=== PATIENT | female | born 1995 | race Caucasian/White ===

== ENCOUNTER → 2017-03-29 | Outpatient (CLI) | payer BC, OTHER ==
[2017-03-29 18:43] LABS: BASOPHILS % (AUTO) 1 % (0-10); EOSINOPHILS # (AUTO) 0.1 10^3/uL (0.0-0.3); EOSINOPHILS % (AUTO) 1 % (0-10); LYMPHOCYTES # (AUTO) 2.6 X 10^3 (1.0-4.0); LYMPHOCYTES % (AUTO) 29 % (12-44); MEAN CORPUSCULAR HEMOGLOBIN 30 PG (25-34); MEAN CORPUSCULAR HGB CONC 34 G/DL (32-36); MEAN CORPUSCULAR VOLUME 87 FL (80-99); MEAN PLATELET VOLUME 9.8 FL (7.4-10.4); MONOCYTES # (AUTO) 0.9 X 10^3 (0.0-1.0); MONOCYTES % (AUTO) 11 % (0-12); NEUTROPHILS # (AUTO) 5.1 X 10^3 (1.8-7.8); NEUTROPHILS % (AUTO) 58 % (42-75); PLATELET COUNT 302 10^3/uL (130-400); RED CELL DISTRIBUTION WIDTH 12.7 % (10.0-14.5); WHITE BLOOD COUNT 8.8 10^3/uL (4.3-11.0)
[2017-03-29 19:01] LABS: ALANINE AMINOTRANSFERASE 13 U/L (0-55); ALBUMIN 4.3 GM/DL (3.2-4.5); ANION GAP 9 MMOL/L (5-14); ASPARTATE AMINO TRANSFERASE 12 U/L (5-34); BILIRUBIN,TOTAL 0.4 MG/DL (0.1-1.0); BLOOD UREA NITROGEN 10 MG/DL (7-18); BUN/CREATININE RATIO 14; CALCIUM 9.6 MG/DL (8.5-10.1); CARBON DIOXIDE 26 MMOL/L (21-32); CHLORIDE 106 MMOL/L (98-107); CREATININE SERUM 0.69 MG/DL (0.60-1.30); GFR ESTIMATED > 60; GLUCOSE 89 MG/DL (70-105); SODIUM 141 MMOL/L (135-145)
== END ==
LOC: LAB 18:29
PROVIDERS: ATTEND Nurse Practitioner Family
DX: R10.84 Generalized abdominal pain (principal); R10.9 Unspecified abdominal pain
CPT/HCPCS: 36415; 80053; 85025

== ENCOUNTER → 2017-09-07 | Outpatient (CLI) | payer BC ==
[~2017-09-07] MED LIST: CATHETER FLUSH 10 ML SYR IV PRN; IOHEXOL 350 MG/ML 100 ML (OMNIPAQUE 350) VIAL IV ONE; NS 250 ML (IVPB) BAG IV ONE; RECEIVED CONTRAST (Hold Metformin) IV SCH
--- NOTE | 2017-09-07 16:47 | Diagnostic Imaging Report ---
INDICATION: Nausea and fever and elevated white count. EXAMINATION: CT of the abdomen and pelvis was obtained with IV contrast bolus. COMPARISON: There are no previous studies available for comparison. FINDINGS: The visualized portions of the lung bases show dependent atelectatic changes. There is no pleural fluid. There is no free intraperitoneal air. The liver shows no focal lesions. Spleen appears unremarkable. The gallbladder is normal. The adrenals appear normal, bilaterally. The pancreas is unremarkable. There is a normal appearance of the right kidney. The left kidney shows a small cyst in the upper pole, measuring about 1.2 cm. There is no retroperitoneal mass or adenopathy. There is no ascites or abnormal fluid collection. There is an IUD in the uterus. This appears to be well-positioned. There is no free fluid in the pelvis. There is no adnexal mass. Visualized bowel loops demonstrate some fluid throughout multiple small bowel loops with thickening of the small bowel loops in the lower abdomen of mild to moderate severity. This may represent inflammatory bowel disease or an infectious enteritis. The appendix appears unremarkable. IMPRESSION: There is a fluid-filled appearance of multiple loops of distal small bowel, with some mild to moderate bowel wall thickening. This finding may represent inflammatory bowel disease or an infectious enteritis. Suggest followup as clinically warranted. The appendix appears normal. There is no evidence of abscess or free air. There is an incidental benign-appearing cyst in the left kidney. Report was called and faxed to the office of PERICO Allison at 4:46 p.m., by shanti. Dictated by: Dictated on workstation # [id number]
== END ==
LOC: RAD 15:25
PROVIDERS: ATTEND Nurse Practitioner Primary Care
DX: D72.829 Elevated white blood cell count, unspecified (principal); K63.89 Other specified diseases of intestine; Z97.5 Presence of (intrauterine) contraceptive device
CPT/HCPCS: 74177